=== PATIENT | male | born 1955 | race Two or more races ===

== ENCOUNTER 2020-08-17 08:08 | Outpatient (REF) | payer OTHER, SELFPAY ==
[2020-08-17 09:04] LABS: Estimated Average Glucose 137 mg/dL; Hemoglobin A1c % 6.4 %
[2020-08-17 09:05] LABS: Alanine Aminotransferase 34 U/L (0-40); Albumin Level 4.2 g/dL (3.5-5.0); Alkaline Phosphatase 99 U/L (39-117); Anion Gap 10 (12-20); Aspartate Amino Transferase 22 U/L (5-37); Bilirubin Total 0.4 mg/dL (0.0-1.0); Blood Urea Nitrogen 22 mg/dL (9-16); Calcium 8.8 mg/dL (8.4-10.2); Carbon Dioxide 27 mmol/L (22-29); Chloride 106 mmol/L (96-108); Estimated Glomerular Filt Rate > 60; Glucose Random 172 mg/dL (60-115); Potassium 4.4 mmol/L (3.3-5.1); Sodium 139 mmol/L (135-145); Total Protein 6.3 g/dL (6.5-8.0)
== END 2020-08-17 08:09 | disposition home or self-care (01) ==
LOC: HO.LAB 08:08
PROVIDERS: PCP Internal Medicine; Visit Provider Internal Medicine
DX: E03.9 Hypothyroidism, unspecified (principal); E11.40 Type 2 diabetes mellitus with diabetic neuropathy, unspecified; R61 Generalized hyperhidrosis; Q61.9 Cystic kidney disease, unspecified
CPT/HCPCS: 36415; 80053; 83036; 84443

== ENCOUNTER 2020-08-22 12:22 | Outpatient (REF) | payer OTHER, SELFPAY ==
--- NOTE | ~2020-08-22 | US_ITS ---
EXAMINATION: US RETROPERITONEAL LIMITED (RENAL ONLY) CLINICAL INFORMATION: Complex cyst of kidney. COMPARISON: Ultrasound renals 09/02/2018 and 08/25/2017 TECHNIQUE: Real-time imaging of the kidneys. FINDINGS: RIGHT KIDNEY: 13.6 x 7.6 x 8.1 cm (SAG x AP x TRV). Within the mid to lower pole, there is an enlarging 6.7 x 7.9 x 6.7 cm cyst with septation without vascular flow within the septation. Previously, this cyst measured approximately 6.9 x 4.2 x 5.9 if you include what was called a second cyst which on today's study may represent a portion of the larger septated cyst. Renal cortical thickness is normal. No renal calculi or hydronephrosis. LEFT KIDNEY: 12.5 x 5.6 x 6.5 cm (SAG x AP x TRV). The left kidney is atrophic. There is significant cortical thinning present. There is again noted to be hydronephrosis versus numerous parapelvic cysts. Numerous cortical cysts are present some with septations. Within the upper pole, the largest cyst measures 3.3 x 4.0 x 3.3 cm in size. Within the midpole, the largest cyst measures 6.3 x 4.8 x 5.7 cm in size and within the lower pole, the largest cyst measures 3.3 x 3.0 x 3.1 cm in size. US/US renal BI IMPRESSION: Bilateral renal cysts, some of which have septations and at least the right renal cyst increasing in size since prior studies. Atrophic left kidney with what appears to be hydronephrosis and, less likely, parapelvic cysts. No suspicious solid mass appreciated. No vascular flow within any of the septations.
== END 2020-08-22 12:23 | disposition home or self-care (01) ==
LOC: HO.US 12:22
PROVIDERS: PCP Internal Medicine; Visit Provider Internal Medicine
DX: N28.1 Cyst of kidney, acquired (principal)
CPT/HCPCS: 76775

== ENCOUNTER 2020-10-29 11:23 | Outpatient (REF) | payer OTHER, SELFPAY ==
--- NOTE | ~2020-10-29 | XR_ITS ---
EXAMINATION: XR SINUSES CLINICAL INFORMATION: Sinusitis COMPARISON: None TECHNIQUE: The sinuses are imaged in 5 views. FINDINGS: There are no air-fluid levels or focal mucosal thickening. No definite polypoid mass. There is no sinus expansion or bony wall thickening or sclerosis or destructive process. XR/XR sinus min 3V IMPRESSION: Unremarkable examination.
== END 2020-10-29 11:24 | disposition home or self-care (01) ==
LOC: HO.XRAY 11:23
PROVIDERS: PCP Internal Medicine; Visit Provider Otolaryngology
DX: J32.9 Chronic sinusitis, unspecified (principal)
CPT/HCPCS: 70220

== ENCOUNTER 2020-11-09 08:33 | Outpatient (REF) | payer OTHER, SELFPAY ==
[2020-11-09 09:49] LABS: Estimated Average Glucose 157 mg/dL; Hemoglobin A1c % 7.1 %
[2020-11-09 10:12] LABS: Alanine Aminotransferase 33 U/L (0-40); Albumin Level 4.4 g/dL (3.5-5.0); Alkaline Phosphatase 88 U/L (39-117); Anion Gap 13 (12-20); Aspartate Amino Transferase 20 U/L (5-37); Bilirubin Total 0.7 mg/dL (0.0-1.0); Blood Urea Nitrogen 20 mg/dL (9-16); Calcium 9.4 mg/dL (8.4-10.2); Carbon Dioxide 23 mmol/L (22-29); Chloride 110 mmol/L (96-108); Estimated Glomerular Filt Rate > 60; Glucose Random 113 mg/dL (60-115); Potassium 4.4 mmol/L (3.3-5.1); Sodium 142 mmol/L (135-145); Total Protein 6.3 g/dL (6.5-8.0)
== END 2020-11-09 08:34 | disposition home or self-care (01) ==
LOC: HO.LAB 08:33
PROVIDERS: PCP Internal Medicine; Visit Provider Internal Medicine
DX: E03.9 Hypothyroidism, unspecified (principal); E11.40 Type 2 diabetes mellitus with diabetic neuropathy, unspecified; N26.1 Atrophy of kidney (terminal); Q61.9 Cystic kidney disease, unspecified; R53.83 Other fatigue
CPT/HCPCS: 36415; 80053; 83036

== ENCOUNTER 2021-02-28 07:44 | Outpatient (REF) | payer OTHER, SELFPAY ==
[2021-02-28 09:02] LABS: MANUAL DIFF FLAG NO
[2021-02-28 09:05] LABS: Basophils Percent Auto 0.4 % (0-2); Eosinophils Absolute Auto 0.1 X10*3/uL (0.0-0.4); Eosinophils Percent Auto 1.9 % (0-4); Hematocrit 35.3 % (42-52); Imm Gran Abs Auto 0.06 X10*3/uL (0.00-0.03); Imm Gran Pct Auto 1.3 % (0.0-0.4); Lymphocytes Absolute Auto 1.3 X10*3/uL (1.2-4.9); Lymphocytes Percent Auto 27.9 % (20-40); Mean Corpuscular Hemoglobin 28.8 pg (27.0-33.0); Mean Corpuscular Volume 84.7 fL (80-98); Mean Platelet Volume 10.1 fL (9.4-12.4); Monocytes Absolute Auto 0.4 X10*3/uL (0.1-1.2); Monocytes Percent Auto 8.4 % (2-11); Neutrophils Absolute Auto 2.9 X10*3/uL (2.0-8.3); Neutrophils Percent Auto 60.1 % (45-73); Platelet Count 166 X10*3/uL (160-400); Red Blood Count 4.17 X10*6/uL (4.60-5.80); Red Cell Distribution Width 13.8 % (11.0-16.0); White Blood Count 4.8 X10*3/uL (4.8-10.8)
[2021-02-28 09:23] LABS: Estimated Average Glucose 134 mg/dL; Hemoglobin A1c % 6.3 %
[2021-02-28 09:42] LABS: Alanine Aminotransferase 32 U/L (0-40); Albumin Level 4.3 g/dL (3.5-5.0); Alkaline Phosphatase 95 U/L (39-117); Anion Gap 11 (12-20); Aspartate Amino Transferase 21 U/L (5-37); Bilirubin Total 0.4 mg/dL (0.0-1.0); Blood Urea Nitrogen 20 mg/dL (9-16); Calcium 9.2 mg/dL (8.4-10.2); Carbon Dioxide 23 mmol/L (22-29); Chloride 111 mmol/L (96-108); Cholesterol 129 mg/dL; Estimated Glomerular Filt Rate > 60; Glucose Random 141 mg/dL (60-115); HDL Cholesterol 31 mg/dL; LDL Cholesterol Calculated 75 mg/dl; Potassium 3.9 mmol/L (3.3-5.1); Sodium 141 mmol/L (135-145); Total Protein 6.2 g/dL (6.5-8.0); Triglycerides 116 mg/dL
[2021-02-28 09:45] LABS: Thyroid Stimulating Hormone 2.34 uIU/mL (0.32-4.0)
[2021-02-28 09:52] LABS: Creatinine Urine 67.98 mg/dL; Microalbum/Creatinine Ratio Ur 14.7 ug/mg cr
== END 2021-02-28 07:45 | disposition home or self-care (01) ==
LOC: HO.LAB 07:44
PROVIDERS: PCP Internal Medicine; Visit Provider Internal Medicine
DX: E03.9 Hypothyroidism, unspecified (principal); E11.9 Type 2 diabetes mellitus without complications; E78.00 Pure hypercholesterolemia, unspecified; R53.83 Other fatigue
CPT/HCPCS: 36415; 80053; 80061; 82043; 83036; 84443; 85025

== ENCOUNTER 2021-04-01 09:22 | Outpatient (REF) | payer OTHER, SELFPAY ==
--- NOTE | ~2021-04-01 | XR_ITS ---
EXAMINATION: XR HIP, RIGHT CLINICAL INFORMATION: Right hip pain. COMPARISON: Radiograph of the right hip dated from 10/06/2016. TECHNIQUE: Two views of the right hip. FINDINGS: No acute fractures or malalignment. The femoral head is well-seated in the acetabula. There are mild degenerative changes of the hip, unchanged since 2017. A subtle sclerotic focus in the lateral intertrochanteric region and subtle chondroid matrix within the medial intertrochanteric region are stable since 2017. XR/XR hip RT min 2V IMPRESSION: Mild degenerative arthritis of the right hip. Otherwise, unremarkable study.
== END 2021-04-01 09:23 | disposition home or self-care (01) ==
LOC: HO.XRAY 09:22
PROVIDERS: PCP Internal Medicine; Visit Provider Internal Medicine
DX: M25.551 Pain in right hip (principal)
CPT/HCPCS: 73502

== ENCOUNTER 2021-04-03 13:11 | Outpatient (REF) | payer OTHER, SELFPAY ==
--- NOTE | ~2021-04-03 | XR_ITS ---
EXAMINATION: XR CHEST CLINICAL INFORMATION: Hemoptysis. COMPARISON: No similar priors. TECHNIQUE: 2 views of the chest were obtained. FINDINGS: Normal appearance of the cardiomediastinal silhouette. Somewhat lucent opacities in the left lower lobe are indeterminate. No pleural effusions or pneumothorax. Compression deformity in the midthoracic spine of uncertain age. XR/XR chest 2V IMPRESSION: Suggestion of bubbly/lucent lesions in the left lower lobe which could be related with bronchiectasis although remain indeterminate. Recommend further evaluation with a diagnostic chest CT. Compression deformities in the mid to lower thoracic spine of uncertain age. Correlate clinically for tenderness at this site. The report will be called to the ordering clinician by a [place] [facility] Physician Artist Consultant.
== END 2021-04-03 13:12 | disposition home or self-care (01) ==
LOC: HO.XRAY 13:11
PROVIDERS: Visit Provider Internal Medicine
DX: R04.2 Hemoptysis (principal)
CPT/HCPCS: 71046

== ENCOUNTER 2021-09-24 09:12 | Outpatient (REF) | payer OTHER, SELFPAY ==
[2021-09-24 10:29] LABS: Estimated Average Glucose 229 mg/dL; Hemoglobin A1c % 9.6 %
[2021-09-24 10:55] LABS: Alanine Aminotransferase 50 U/L (0-40); Albumin Level 4.3 g/dL (3.5-5.0); Alkaline Phosphatase 118 U/L (39-117); Anion Gap 14 (12-20); Aspartate Amino Transferase 25 U/L (5-37); Bilirubin Total 0.5 mg/dL (0.0-1.0); Blood Urea Nitrogen 23 mg/dL (9-16); Calcium 9.5 mg/dL (8.4-10.2); Carbon Dioxide 22 mmol/L (22-29); Chloride 106 mmol/L (96-108); Estimated Glomerular Filt Rate > 60; Glucose Random 177 mg/dL (60-115); Potassium 4.7 mmol/L (3.3-5.1); Sodium 137 mmol/L (135-145); Total Protein 6.6 g/dL (6.5-8.0)
== END 2021-09-24 09:13 | disposition home or self-care (01) ==
LOC: HO.LAB 09:12
PROVIDERS: PCP Internal Medicine; Visit Provider Internal Medicine
DX: Z00.00 Encounter for general adult medical examination without abnormal findings (principal); E03.9 Hypothyroidism, unspecified; E11.9 Type 2 diabetes mellitus without complications; E78.00 Pure hypercholesterolemia, unspecified; R61 Generalized hyperhidrosis
CPT/HCPCS: 36415; 80053; 83036

== ENCOUNTER 2022-01-03 08:09 | Outpatient (REF) | payer OTHER, SELFPAY ==
[2022-01-03 09:21] LABS: Alanine Aminotransferase 32 U/L (0-40); Albumin Level 4.1 g/dL (3.5-5.0); Alkaline Phosphatase 85 U/L (39-117); Anion Gap 11 (12-20); Aspartate Amino Transferase 19 U/L (5-37); Bilirubin Total 0.4 mg/dL (0.0-1.0); Blood Urea Nitrogen 25 mg/dL (9-16); Calcium 8.4 mg/dL (8.4-10.2); Carbon Dioxide 22 mmol/L (22-29); Chloride 112 mmol/L (96-108); Estimated Glomerular Filt Rate > 60; Glucose Random 138 mg/dL (60-115); Potassium 3.9 mmol/L (3.3-5.1); Sodium 141 mmol/L (135-145); Total Protein 5.9 g/dL (6.5-8.0)
[2022-01-03 09:40] LABS: Estimated Average Glucose 126 mg/dL
[2022-01-03 09:45] LABS: Thyroid Stimulating Hormone 3.12 uIU/mL (0.32-4.0)
== END 2022-01-03 08:10 | disposition home or self-care (01) ==
LOC: HO.LAB 08:09
PROVIDERS: PCP Internal Medicine; Visit Provider Internal Medicine
DX: E03.9 Hypothyroidism, unspecified (principal); E11.65 Type 2 diabetes mellitus with hyperglycemia; J47.9 Bronchiectasis, uncomplicated; R63.5 Abnormal weight gain
CPT/HCPCS: 36415; 80053; 83036; 84443

== ENCOUNTER 2022-03-18 17:09 | Outpatient (REF) | payer OTHER, SELFPAY ==
--- NOTE | ~2022-03-18 | US_ITS ---
EXAMINATION: US VENOUS ULTRASOUND WITH DOPPLER LOWER EXTREMITY, BILATERAL CLINICAL INFORMATION: History of trauma with lower extremity pain COMPARISON: None TECHNIQUE: Ultrasound of the deep veins is performed from the hip to the calf with compression sonography and color and pulse Doppler assessment. Spectral analysis with color-flow imaging is performed. FINDINGS: RIGHT: There is normal venous compression and respiratory variation and augmented flow. The visualized common femoral vein, superficial femoral vein, profunda femoral vein, popliteal vein, and the trifurcation region shows no evidence of deep venous thrombosis. There is no significant popliteal fossa cyst. LEFT: There is normal venous compression and respiratory variation and augmented flow. The visualized common femoral vein, superficial femoral vein, profunda femoral vein, popliteal vein, and the trifurcation region shows no evidence of deep venous thrombosis. There is no significant popliteal fossa cyst. If the patient's symptoms persist, followup ultrasound in 5 days 7 days might be of value to exclude proximal propagation from a non-visualized calf vein. US/US venous duplex LE BI IMPRESSION: No DVT demonstrated in either lower extremity.
== END 2022-03-18 17:10 | disposition home or self-care (01) ==
LOC: HO.US 17:09
PROVIDERS: PCP Internal Medicine; Visit Provider Internal Medicine
DX: M79.605 Pain in left leg (principal); M79.604 Pain in right leg
CPT/HCPCS: 93970

== ENCOUNTER 2022-03-25 16:13 | Outpatient (REF) | payer OTHER, SELFPAY ==
--- NOTE | ~2022-03-25 | US_ITS ---
EXAMINATION: US VENOUS ULTRASOUND WITH DOPPLER LOWER EXTREMITY, LEFT CLINICAL INFORMATION: Left leg pain and swelling COMPARISON: Bilateral lower extremity duplex on 03/18/2020 TECHNIQUE: Ultrasound of the deep veins is performed from the hip to the calf with compression sonography and color and pulse Doppler assessment. Spectral analysis with color-flow imaging is performed. FINDINGS: There is normal venous compression and respiratory variation and augmented flow. The visualized common femoral vein, superficial femoral vein, profunda femoral vein, popliteal vein, and the trifurcation region shows no evidence of deep venous thrombosis. There is no significant popliteal fossa cyst. If the patient's symptoms persist, followup ultrasound in 5 days 7 days might be of value to exclude proximal propagation from a non-visualized calf vein. US/US venous duplex LE IMPRESSION: No DVT demonstrated in the left lower extremity.
== END 2022-03-25 16:14 | disposition home or self-care (01) ==
LOC: HO.US 16:13
PROVIDERS: PCP Internal Medicine; Visit Provider Internal Medicine
DX: R60.0 Localized edema (principal); M79.605 Pain in left leg
CPT/HCPCS: 93971

== ENCOUNTER 2022-04-04 07:44 | Outpatient (REF) | payer OTHER, SELFPAY ==
[2022-04-04 07:59] LABS: MANUAL DIFF FLAG NO
[2022-04-04 08:33] LABS: Basophils Percent Auto 0.4 % (0-2); Eosinophils Absolute Auto 0.2 X10*3/uL (0.0-0.4); Hematocrit 38.2 % (42.0-52.0); Hemoglobin 13.3 g/dl (14.0-18.0); Imm Gran Abs Auto 0.03 X10*3/uL (0.00-0.03); Imm Gran Pct Auto 0.6 % (0.0-0.4); Lymphocytes Absolute Auto 1.6 X10*3/uL (1.2-4.9); Lymphocytes Percent Auto 29.2 % (20-40); Mean Corpuscular HGB Conc 34.8 g/dl (31.0-36.0); Mean Corpuscular Volume 86.2 fL (80.0-98.0); Mean Platelet Volume 9.7 fL (9.4-12.4); Monocytes Absolute Auto 0.4 X10*3/uL (0.1-1.2); Neutrophils Absolute Auto 3.2 x10*3/uL (2.0-8.3); Neutrophils Percent Auto 58.8 % (45-73); Platelet Count 177 X10*3/uL (160-400); Red Blood Count 4.43 X10*6/uL (4.60-5.80); Red Cell Distribution Width 13.2 % (11.0-16.0); White Blood Count 5.4 X10*3/uL (4.8-10.8)
[2022-04-04 08:44] LABS: Estimated Average Glucose 120 mg/dL; Hemoglobin A1c % 5.8 %
[2022-04-04 08:49] LABS: Alanine Aminotransferase 28 U/L (0-40); Albumin Level 4.6 g/dL (3.5-5.0); Alkaline Phosphatase 77 U/L (39-117); Anion Gap 14 (12-20); Aspartate Amino Transferase 22 U/L (5-37); Bilirubin Total 0.3 mg/dL (0.0-1.0); Blood Urea Nitrogen 30 mg/dL (9-16); Calcium 9.6 mg/dL (8.4-10.2); Carbon Dioxide 25 mmol/L (22-29); Chloride 103 mmol/L (96-108); Cholesterol 115 mg/dL; Estimated Glomerular Filt Rate > 60; Glucose Random 110 mg/dL (60-115); HDL Cholesterol 35 mg/dL; LDL Cholesterol Calculated 65 mg/dl; Potassium 4.4 mmol/L (3.3-5.1); Sodium 138 mmol/L (135-145); Total Protein 6.6 g/dL (6.5-8.0); Triglycerides 78 mg/dL
[2022-04-04 09:10] LABS: Creatinine Urine 69.98 mg/dL; Microalbum/Creatinine Ratio Ur 7.1 ug/mg cr
[2022-04-04 09:11] LABS: Prostate Specific Antigen Scr 0.56 ng/mL (<0.05-4.0)
[2022-04-04 09:29] LABS: Vitamin B12 806 pg/mL (200-900)
== END 2022-04-04 07:45 | disposition home or self-care (01) ==
LOC: HO.LAB 07:44
PROVIDERS: PCP Internal Medicine; Visit Provider Internal Medicine
DX: Z12.5 Encounter for screening for malignant neoplasm of prostate (principal); E03.9 Hypothyroidism, unspecified; E11.40 Type 2 diabetes mellitus with diabetic neuropathy, unspecified; E11.65 Type 2 diabetes mellitus with hyperglycemia; E78.00 Pure hypercholesterolemia, unspecified; J47.9 Bronchiectasis, uncomplicated; N40.0 Benign prostatic hyperplasia without lower urinary tract symptoms
CPT/HCPCS: 36415; 80053; 80061; 82043; 82607; 83036; 84153; 85025

== ENCOUNTER 2023-02-09 09:23 | Outpatient (REF) | payer OTHER, SELFPAY ==
[2023-02-09 10:43] LABS: Estimated Average Glucose 143 mg/dL; Hemoglobin A1c % 6.6 %
[2023-02-09 11:18] LABS: Alanine Aminotransferase 27 U/L (0-40); Albumin Level 3.9 g/dL (3.5-5.0); Alkaline Phosphatase 103 U/L (39-117); Anion Gap 15 (12-20); Aspartate Amino Transferase 15 U/L (5-37); Bilirubin Total 0.4 mg/dL (0.0-1.0); Blood Urea Nitrogen 21 mg/dL (9-16); Calcium 9.4 mg/dL (8.4-10.2); Carbon Dioxide 22 mmol/L (22-29); Chloride 104 mmol/L (96-108); Estimated Glomerular Filt Rate > 60; Glucose Random 301 mg/dL (60-115); Potassium 4.8 mmol/L (3.3-5.1); Sodium 136 mmol/L (135-145); Total Protein 6.4 g/dL (6.5-8.0)
[2023-02-09 11:22] LABS: Thyroid Stimulating Hormone 1.05 uIU/mL (0.32-4.0)
== END 2023-02-09 09:24 | disposition home or self-care (01) ==
LOC: HO.10HDL 09:23
PROVIDERS: Visit Provider Internal Medicine
DX: Z00.00 Encounter for general adult medical examination without abnormal findings (principal); E03.8 Other specified hypothyroidism; E11.9 Type 2 diabetes mellitus without complications; E78.00 Pure hypercholesterolemia, unspecified
CPT/HCPCS: 36415; 80053; 83036; 84443

== ENCOUNTER 2023-04-03 09:14 | Outpatient (REF) | payer OTHER, SELFPAY ==
--- NOTE | 2023-04-03 09:17 | EMG_ITS ---
Chief complaint: History of stroke with right sided hemiparesis. No residual weakness seen on exam today. Still complains of right hand pain and numbness. Reason for referral: Evaluate for radiculopathy Referred by: Dr. Phelan Procedure done: Right upper extremity NCS/EMG Precautions and/or limitations: None The limb temperature was monitored continuously and remained between 32-36 degrees C during the performance of the NCS. Nerve Conduction Studies Anti Sensory Summary Table ?Stim Site NR Onset (ms) Norm Onset (ms) Peak (ms) Norm Peak (ms) O-P Amp (?V) Norm O-P Amp Site1 Site2 Delta-0 (ms) Dist (cm) Bart (m/s) Norm Bart (m/s) Right Median Anti Sensory (2nd Digit) Wrist ? 2.9 3.5 <3.6 24.5 >10 Wrist 2nd Digit 2.9 14.0 48 Right Radial Anti Sensory (Thumb) Forearm ? 2.5 2.8 <3.1 15.2 Forearm Thumb 2.5 0.0 Right Ulnar Anti Sensory (5th Digit) Wrist ? 2.5 3.3 <3.7 24.4 >15.0 Wrist 5th Digit 2.5 14.0 56 Motor Summary Table ?Stim Site NR Onset (ms) Norm Onset (ms) O-P Amp (mV) Norm O-P Amp iAmp (mV) Amp (1st) (%) Site1 Site2 Delta-0 (ms) Dist (cm) Bart (m/s) Norm Bart (m/s) Right Median Motor (Abd Poll Brev) Wrist ? 3.8 <3.9 8.5 >4.5 10.5 100.0 Elbow Wrist 3.3 19.0 58 >45 Elbow ? 7.1 8.3 10.3 97.6 Right Ulnar Motor (Abd Dig Minimi) Wrist ? 2.9 <3.0 7.3 >5 8.6 100.0 B Elbow Wrist 3.0 18.5 62 >45 B Elbow ? 5.9 8.2 9.9 112.3 A Elbow B Elbow 1.4 10.0 71 >45 A Elbow ? 7.3 7.3 9.1 100.0 EMG ?Side Muscle Nerve Root Ins Act Fibs Psw Amp Dur Poly Recrt Int Pat Comment Right 1stDorInt Ulnar C8-T1 Nml Nml Nml Nml Nml 0 Nml Complete Right FlexCarRad Median C6-7 Nml Nml Nml Nml Nml 0 Nml Complete Right Biceps Musculocut C5-6 Nml Nml Nml Nml Nml 0 Nml Complete Right Triceps Radial C6-7-8 Nml Nml Nml Nml Nml 0 Nml Complete Right Deltoid Axillary C5-6 Nml Nml Nml Nml Nml 0 Nml Complete FINDINGS: All motor and sensory nerves tested showed normal latencies, amplitudes and conduction velocities. Concentric needle EMG was performed in selected muscles of the right upper extremity. Study did not reveal signs of electric abnormalities as shown in the table below. IMPRESSION: 1. This is a normal study. 2. There is no electrodiagnostic evidence for median neuropathy, ulnar neuropathy, brachial plexopathy, or cervical radiculopathy. Thank you for your kind referral. Kayla Zaldivar MD, NAHUM Board Certified, [place] Board [employer] and Rehabilitation (ABPMR) Board Certified, [place] Board of Electrodiagnostic Medicine (ABEM) [place] [id number] [facility]
== END 2023-04-03 09:15 | disposition home or self-care (01) ==
LOC: HO.NEURO 09:14
PROVIDERS: PCP Internal Medicine; Visit Provider Internal Medicine
DX: G56.01 Carpal tunnel syndrome, right upper limb (principal)
CPT/HCPCS: 95886; 95909

== ENCOUNTER → 2023-04-03 09:17 | Outpatient (BNV) | payer OTHER, SELFPAY | PROVIDERS: PCP Internal Medicine; Visit Provider Physical Medicine & Rehabilitation | DX: M79.641 Pain in right hand (principal); R20.2 Paresthesia of skin | CPT/HCPCS: 95886; 95909 ==

== ENCOUNTER 2023-04-15 08:41 | Outpatient (REF) | payer OTHER, SELFPAY ==
[2023-04-15 11:17] LABS: Creatinine Urine 28.92 mg/dL; Microalbumin Urine < 5.0 mg/L
== END 2023-04-15 08:42 | disposition home or self-care (01) ==
LOC: HO.LAB 08:41
PROVIDERS: PCP Internal Medicine; Visit Provider Internal Medicine
DX: E11.9 Type 2 diabetes mellitus without complications (principal); E78.00 Pure hypercholesterolemia, unspecified; I10 Essential (primary) hypertension; Z86.73 Personal history of transient ischemic attack (TIA), and cerebral infarction without residual deficits; Z12.5 Encounter for screening for malignant neoplasm of prostate
CPT/HCPCS: 36415; 80053; 80061; 82043; 82570; 83036; 84153; 85025

== ENCOUNTER 2023-08-11 08:00 | Outpatient (REF) | payer OTHER, MEDICARE, SELFPAY ==
[2023-08-11 08:47] LABS: Estimated Average Glucose 120 mg/dL; Hemoglobin A1c % 5.8 % (<6.0)
[2023-08-11 09:15] LABS: Alanine Aminotransferase 21 U/L (0-40); Albumin Level 4.4 g/dL (3.5-5.0); Alkaline Phosphatase 70 U/L (39-117); Anion Gap 10 (12-20); Aspartate Amino Transferase 18 U/L (5-37); Bilirubin Total 0.5 mg/dL (0.0-1.0); Blood Urea Nitrogen 27 mg/dL (9-16); Calcium 9.3 mg/dL (8.4-10.2); Carbon Dioxide 25 mmol/L (22-29); Chloride 108 mmol/L (96-108); Estimated Glomerular Filt Rate > 60; Glucose Random 155 mg/dL (60-115); Potassium 4.4 mmol/L (3.3-5.1); Sodium 139 mmol/L (135-145); Total Protein 6.6 g/dL (6.5-8.0)
[2023-08-11 09:32] LABS: Thyroid Stimulating Hormone 1.94 uIU/mL (0.32-4.0)
== END 2023-08-11 08:01 | disposition home or self-care (01) ==
LOC: HO.LAB 08:00
PROVIDERS: PCP Internal Medicine; Visit Provider Internal Medicine
DX: E03.8 Other specified hypothyroidism (principal); E11.9 Type 2 diabetes mellitus without complications; I10 Essential (primary) hypertension; R61 Generalized hyperhidrosis
CPT/HCPCS: 36415; 80053; 83036; 84443

== ENCOUNTER 2024-05-12 07:48 | Outpatient (REF) | payer OTHER, MEDICARE, SELFPAY ==
[2024-05-12 08:12] LABS: MANUAL DIFF FLAG NO
[2024-05-12 08:51] LABS: Basophils Percent Auto 0.6 % (0-2); Eosinophils Absolute Auto 0.2 X10*3/uL (0.0-0.4); Eosinophils Percent Auto 3.1 % (0-4); Hemoglobin 12.6 g/dl (14.0-18.0); Imm Gran Abs Auto 0.06 X10*3/uL (0.00-0.03); Imm Gran Pct Auto 1.1 % (0.0-0.4); Lymphocytes Absolute Auto 1.1 X10*3/uL (1.2-4.9); Mean Corpuscular Hemoglobin 30.1 pg (27.0-33.0); Mean Corpuscular Volume 86.1 fL (80.0-98.0); Mean Platelet Volume 9.3 fL (9.4-12.4); Monocytes Absolute Auto 0.4 X10*3/uL (0.1-1.2); Neutrophils Absolute Auto 3.7 x10*3/uL (2.0-8.3); Neutrophils Percent Auto 68.2 % (45-73); Platelet Count 194 X10*3/uL (160-400); Red Blood Count 4.18 X10*6/uL (4.60-5.80); White Blood Count 5.4 X10*3/uL (4.8-10.8)
[2024-05-12 08:52] LABS: Estimated Average Glucose 128 mg/dL; Hemoglobin A1C 140.3747 umol/L; Hemoglobin A1c % 6.1 % (<6.0); Total Hemoglobin (HGBA1C) 3292.7452 umol/L
[2024-05-12 09:16] LABS: Alanine Aminotransferase 27 U/L (0-40); Albumin Level 4.2 g/dL (3.5-5.0); Alkaline Phosphatase 94 U/L (39-117); Anion Gap 12 (12-20); Aspartate Amino Transferase 21 U/L (5-37); Bilirubin Total 0.5 mg/dL (0.0-1.0); Blood Urea Nitrogen 23 mg/dL (9-16); Calcium 9.6 mg/dL (8.4-10.2); Carbon Dioxide 22 mmol/L (22-29); Chloride 108 mmol/L (96-108); Cholesterol 115 mg/dL (<200); Estimated Glomerular Filt Rate > 60; Glucose Random 197 mg/dL (60-115); HDL Cholesterol 31 mg/dL (>40); LDL Cholesterol Calculated 59 mg/dL (<100); Potassium 4.3 mmol/L (3.3-5.1); Sodium 138 mmol/L (135-145); Total Protein 6.4 g/dL (6.5-8.0); Triglycerides 125 mg/dL (<150)
[2024-05-12 09:34] LABS: Prostate Specific Antigen Scr 0.47 ng/mL (<0.05-4.0)
[2024-05-12 10:18] LABS: Creatinine Urine 62.02 mg/dL; Microalbum/Creatinine Ratio Ur 12.8 ug/mg cr (<30)
== END 2024-05-12 07:49 | disposition home or self-care (01) ==
LOC: HO.LAB 07:48
PROVIDERS: PCP Internal Medicine; Visit Provider Internal Medicine
DX: E03.8 Other specified hypothyroidism (principal); E11.9 Type 2 diabetes mellitus without complications; E78.00 Pure hypercholesterolemia, unspecified; I10 Essential (primary) hypertension; N40.0 Benign prostatic hyperplasia without lower urinary tract symptoms; Z12.5 Encounter for screening for malignant neoplasm of prostate
CPT/HCPCS: 36415; 80053; 80061; 82043; 82570; 83036; 84153; 85025

== ENCOUNTER 2024-06-17 07:59 | Outpatient (REF) | payer OTHER, MEDICARE, SELFPAY | END 2024-06-17 08:00 | disposition home or self-care (01) | LOC: HO.US 07:59 | PROVIDERS: PCP Internal Medicine; Visit Provider Internal Medicine | DX: N28.1 Cyst of kidney, acquired (principal) | CPT/HCPCS: 76775 ==

== ENCOUNTER 2024-08-29 08:16 | Outpatient (REF) | payer OTHER, MEDICARE, SELFPAY ==
[2024-08-29 08:54] LABS: Estimated Average Glucose 120 mg/dL; Hemoglobin A1C 130.7074 umol/L; Hemoglobin A1c % 5.8 % (<6.0); Total Hemoglobin (HGBA1C) 3268.4058 umol/L
[2024-08-29 09:40] LABS: Alanine Aminotransferase 20 U/L (0-40); Alkaline Phosphatase 80 U/L (39-117); Anion Gap 13 (12-20); Aspartate Amino Transferase 19 U/L (5-37); Bilirubin Total 0.4 mg/dL (0.0-1.0); Blood Urea Nitrogen 21 mg/dL (9-16); Calcium 8.9 mg/dL (8.4-10.2); Carbon Dioxide 22 mmol/L (22-29); Chloride 110 mmol/L (96-108); Estimated Glomerular Filt Rate > 60; Glucose Random 153 mg/dL (60-115); Sodium 141 mmol/L (135-145); Total Protein 6.2 g/dL (6.5-8.0)
== END 2024-08-29 08:17 | disposition home or self-care (01) ==
LOC: HO.LAB 08:16
PROVIDERS: PCP Internal Medicine; Visit Provider Internal Medicine
DX: E03.8 Other specified hypothyroidism (principal); E11.9 Type 2 diabetes mellitus without complications; E78.00 Pure hypercholesterolemia, unspecified; I10 Essential (primary) hypertension; M75.41 Impingement syndrome of right shoulder
CPT/HCPCS: 36415; 80053; 83036; 84443

== ENCOUNTER 2024-09-27 08:41 | Outpatient (AMB) | payer OTHER, MEDICARE, SELFPAY ==
--- NOTE | 2024-09-27 08:42 | A.OFFVIS_ITS ---
Intake Visit Reasons: Kidney Cysts Intake Note: New Patient presents for initial visit for kidney cysts Urology Medications: none Blood Thinner: none Director Of Hospitality Required: Yes Accompanied by: Unknown Allergies No Known Allergies [No Known Allergies*] Allergy (Unverified 09/27/24 09:32) Medication List - Last Reconciled 09/27/24 by VERONICA Ahn-JEANNE aspirin 81 mg PO DAILY atorvastatin 20 mg PO DAILY glipizide ER 10 mg PO DAILY levothyroxine 88 mcg PO DAILY losartan 50 mg PO DAILY sertraline 100 mg PO DAILY sitagliptin phos-metformin 50-1,000 mg (Janumet) 1 tab PO BID HPI Comments Details: Tommy is a 69-year-old Andorran-speaking male patient of Dr. Weinberg who was accompanied by his daughter at today's office visit. Has a past medical history of hypertension, diabetes, renal cysts, and erectile dysfunction. In discussion with the patient today he reports having previously followed up with Urology in the past Dr. Ortiz and undergoing surveillance monitoring of renal cysts however lost follow-up and is here to re-establish care. He discusses having followed up with Urology back home in [facility] where he is from and having had a previous prostate procedure. In review of patient's chart it appears renal ultrasound was recently ordered and performed. These results were communicated and reviewed with the patient and his daughter today. 06/28 bilateral kidneys with no hydronephrosis or renal calculi. Bilateral renal cysts are varying in complex cyst 80, largest 10.5 cm on the right kidney which continues to increase in size when compared to previous MRI imaging in 2017. We discussed obtaining CT renal mass protocol for further assessment evaluation. He otherwise denies any bothersome urinary issues. He denies urinary urgency, urinary frequency, incontinence, nocturia, hematuria, dysuria, foul smelling urine, changes to urinary stream, flank pain, fever, and or chills. He is happy with his current voiding parameters. He however discusses his ongoing issues with erectile dysfunction. He reports having trialed daily dosing of tadalafil 10 mg daily and did not find this helpful as well as Viagra on demand. He reports having trialed injection therapy with Urology and [place] in reports this was helpful however was not understanding this needed to be done prior to sexual activity. We discussed at length potential causes of renal cysts as well as ED and further treatment options and risks and benefits of these treatment options. He otherwise offers no other issues or concerns at this time. In review of patient's chart PSAs are as follows: 03/27 0.6, 04/27 1.1, 05/29 0.5 Plan I have decided to order a CT scan to reassess the patient's renal cysts and determine any significant changes since the 2017 MRI. This will inform future management or intervention needs for the renal cysts. As for the erectile dysfunction, after unsuccessful attempts with current oral medication, the patient was presented with a potential regimen adjustment or transition to injection therapy. The potential for self-administered injection therapy was discussed, addressing its pros and cons. Labratory results will be reviewed upon follow-up to guide further management decisions. Patient was informed and verbally consented to the use of an ambient scribe for clinic note documentation during this visit. Discussion Notes I thoroughly discussed with the patient the findings of the recent ultrasound, emphasizingof his renal cysts but noting the need for updated imaging via CT scan to evaluate any meaningful changes in the right cyst's size. Benefits of continuing routine surveillance imaging were explained, ensuring prompt detection of any adverse developments. Regarding erectile dysfunction, I outli randell the current recommendations with potential regimen changes. The patient was informed about alternative erectile dysfunction treatments, including injection therapy, with clear instructions on self-administration and its practicality if oral medications remain ineffective. I covered the risks and benefits, with a focus on tailored treatment based on his response. Consent for the CT scan and discussions regarding injection therapy were obtained. [facility] Medical History (Updated 09/27/24 @ 09:49 by NADIYA Ahn) Hypertension Diabetes Review of Systems Const All systems reviewed & are unremarkable except as noted in HPI and below Physical Exam Const General: cooperative, healthy appearing, comfortable, no acute distress, well developed, alert and awake Orientation/consciousness: patient oriented x3 Limitations: language barrier HEENT Head: Yes normal to inspection, Yes normocephalic and Yes atraumatic Ears: hearing grossly normal bilaterally Eyes General: appearance normal, both eyes and all related structures Neck Neck: Yes normal visual inspection and Yes trachea midline Chest Chest palpation & inspection: normal inspection of the chest Resp Effort & Inspection: normal respiratory effort and able to speak in complete sentences Cardio Rate: regular rate GI Inspection: Yes normal to inspection General: Yes no CVA tenderness Back/Spine/Pelvis Back: no CVA tenderness Skin General skin exam: no rashes or lesions noted Neuro General: patient oriented x3 Extrem General: Yes normal to inspection Psych Appearance: grossly normal and well kempt Mental Status: mental status grossly normal Speech and movement: Normal speech and movement present and Clear speech present Affect: normal affect Attitude: cooperative Thought process: Normal thought process present Thought content: Normal thought content present Insight: Fair insight present (Psych) Judgement: Fair judgement present (Psych) Results AMB Urinalysis, Automated UA Leukoctes 0 Rachelle/uL Last Edit by [employer] on 09/27/24 09:04 UA Nitrite Last Edit by [employer] on 09/27/24 09:04 UA Urobilinogen 0.2 mg/dL Last Edit by [employer] on 09/27/24 09:04 UA Protein 15 mg/dL Last Edit by [employer] on 09/27/24 09:04 UA pH 6.0 Last Edit by [employer] on 09/27/24 09:04 UA Blood 0 Jayme/uL Last Edit by [employer] on 09/27/24 09:04 UA Specific [place] 1.015 Last Edit by [employer] on 09/27/24 09:04 UA Ketone Last Edit by [employer] on 09/27/24 09:04 UA Bilirubin 0 mg/dL Last Edit by [employer] on 09/27/24 09:04 UA Glucose 0 mg/dL Last Edit by [employer] on 09/27/24 09:04 Results Reviewed Results Reviewed: Laboratory Last Values Urine pH (Auto) 6.0 09/27/24 09:03 Specific [place] (Auto) 1.015 09/27/24 09:03 Urine Protein (Auto) 15 mg/dL 09/27/24 09:03 Glucose (UA)(Auto) 0 mg/dL 09/27/24 09:03 Urine Blood (Auto) 0 Jayme/uL 09/27/24 09:03 Urine Bilirubin (Auto) 0 mg/dL 09/27/24 09:03 Urine Urobilinogen (Auto) 0.2 mg/dL 09/27/24 09:03 Leukocyte Esterase (Auto) 0 Rachelle/uL 09/27/24 09:03 Date of Service: 06/17/24 Procedure(s): US renal BI FINDINGS: RIGHT KIDNEY: 15.1 x 9.0 x 7.6 cm (SAG x AP x TRV). No hydronephrosis. No renal calculi. Renal cortical thickness is normal. Limited visualization. 10.5 x 6.6 x 7.3 cm lateral midpole right renal cyst appears mildly complex with septations and low-level internal echoes, measuring 6.7 x 7.9 x 6.7 cm on 08/22/2020 ultrasound and 6.7 x 4.2 cm on MRI abdomen of 02/02/2017, increasing in size over time. LEFT KIDNEY: 12.5 x 6.3 x 7.6 cm (SAG x AP x TRV). No hydronephrosis. No renal calculi. Limited visualization. Diffuse renal cortical thinning. Multiple left renal cysts, some with septations, and some are difficult to fully characterize as visualization is limited due to bowel gas. Largest cyst 6.2 x 5.1 x 6.0 cm midpole, previously 6.3 x 4.8 x 5.7 cm. IMPRESSION: 1. No hydronephrosis. No renal calculi. 2. Bilateral renal cysts of varying complexity, largest 10.5 cm right kidney continues to increase in size. Dedicated CT scan employing renal mass protocol with images obtained both prior to and following intravenous contrast recommended. Assessment & Plan Assessment & Plan (1) Complex renal cyst: Code(s): N28.1 - Cyst of kidney, acquired Category: Medical (2) Erectile dysfunction associated with type 2 diabetes mellitus: Code(s): E11.69 - Type 2 diabetes mellitus with other specified complication; N52.1 - Erectile dysfunction due to diseases classified elsewhere Category: Medical Plan In office urinalysis results reviewed the patient today; as noted above. Recent renal imaging results reviewed with the patient today; as noted above. We discussed obtaining CT renal mass protocol for further assessment evaluation. BUN and creatinine ordered for imaging. We discussed potential causes of renal cysts as well as ED and further treatment options and risks and benefits of these treatment options. We discussed at length the importance of managing diabetes for improvement in ED as well as overall health and well-being. Patient currently denies any bothersome urinary issues. He reports be happy with current voiding parameters. Follow-up in 1-3 months with imaging to be completed prior; or sooner with any issues, concerns, and or questions. Orders: Orders CT abdomen pelvis wo/w IV con Today N28.1 - Cyst of kidney, acquired Blood Urea Nitrogen Today R39.15 - Urgency of urination AMB Urinalysis Automated Today Z13.9 - Encounter for screening, unspecified Creatinine Today R39.15 - Urgency of urination Patient Instructions: The patient had an opportunity to ask questions regarding the treatment plan. All questions were answered. Physical exam, labs, and imaging were discussed and reviewed in detail. As well as risks, benefits, and discussion of treatment choices. No major barriers to understanding were identified. The patient expressed understanding and agreement with the above treatment plan. The patient was made aware they should contact our office by phone for worsening of their current condition, the appearance of new symptoms, or with any questions or concerns. Compliance is encouraged with any medications and follow up testing that is ordered. It is a privilege to be allowed the opportunity to participate in? your urological care.? Again, if you have any questions or concerns If you have any questions or concerns please do not hesitate to contact me. The office is [phone]. This note is constructed using voice recognition software. While every effort has been made to ensure accuracy staff consultant errors may have been included. Yours sincerely, NADIYA Ahn Coding Level of Care Code New Pt Level 4 (39651) Diagnoses Complex renal cyst N28.1 Erectile dysfunction associated with type 2 diabetes mellitus E11.69; N52.1 Time Spent (min) 35
== END 2024-09-27 09:35 | disposition home or self-care (01) ==
LOC: HO.HUSH 08:42
PROVIDERS: PCP Internal Medicine; Visit Provider Nurse Practitioner Family
DX: N28.1 Cyst of kidney, acquired (principal); E11.69 Type 2 diabetes mellitus with other specified complication; N52.1 Erectile dysfunction due to diseases classified elsewhere; Z13.9 Encounter for screening, unspecified
CPT/HCPCS: 99204

== ENCOUNTER → 2024-09-27 08:41 | Outpatient (BNVA) | payer OTHER, MEDICARE, SELFPAY | PROVIDERS: PCP Internal Medicine; Visit Provider Nurse Practitioner Family | DX: N28.1 Cyst of kidney, acquired (principal); E11.69 Type 2 diabetes mellitus with other specified complication; N52.1 Erectile dysfunction due to diseases classified elsewhere; R39.15 Urgency of urination | CPT/HCPCS: 81003 ==

== ENCOUNTER 2024-12-09 08:26 | Outpatient (REF) | payer OTHER, MEDICARE, SELFPAY ==
[2024-12-09 09:15] LABS: Estimated Average Glucose 128 mg/dL; Hemoglobin A1c % 6.1 % (<6.0)
[2024-12-09 10:16] LABS: Alanine Aminotransferase 22 U/L (0-40); Albumin Level 4.3 g/dL (3.5-5.0); Alkaline Phosphatase 73 U/L (39-117); Anion Gap 10 (12-20); Aspartate Amino Transferase 20 U/L (5-37); Bilirubin Total 0.5 mg/dL (0.0-1.0); Blood Urea Nitrogen 18 mg/dL (9-16); Calcium 9.6 mg/dL (8.4-10.2); Carbon Dioxide 25 mmol/L (22-29); Chloride 109 mmol/L (96-108); Estimated Glomerular Filt Rate > 60; Glucose Random 153 mg/dL (60-115); Potassium 4.2 mmol/L (3.3-5.1); Sodium 140 mmol/L (135-145); Total Protein 6.6 g/dL (6.5-8.0)
== END 2024-12-09 08:27 | disposition home or self-care (01) ==
LOC: HO.LAB 08:26
PROVIDERS: PCP Internal Medicine; Visit Provider Internal Medicine
DX: E03.8 Other specified hypothyroidism (principal); E11.9 Type 2 diabetes mellitus without complications; E78.00 Pure hypercholesterolemia, unspecified; N28.1 Cyst of kidney, acquired
CPT/HCPCS: 36415; 80053; 83036

== ENCOUNTER 2024-12-27 07:04 | Outpatient (REF) | payer OTHER, MEDICARE, SELFPAY ==
[2024-12-27 08:27] LABS: Blood Urea Nitrogen 23 mg/dL (9-16); Estimated Glomerular Filt Rate > 60
== END 2024-12-27 07:05 | disposition home or self-care (01) ==
LOC: HO.LAB 07:04
PROVIDERS: PCP Internal Medicine; Visit Provider Nurse Practitioner Family
DX: R39.15 Urgency of urination (principal)
CPT/HCPCS: 36415; 82565; 84520

== ENCOUNTER 2025-02-02 07:15 | Outpatient (REF) | payer OTHER, MEDICARE, SELFPAY ==
[2025-02-02 08:26] LABS: Blood Urea Nitrogen 26 mg/dL (9-16); Estimated Glomerular Filt Rate > 60
== END 2025-02-02 07:16 | disposition home or self-care (01) ==
LOC: HO.LAB 07:15
PROVIDERS: PCP Internal Medicine; Visit Provider Nurse Practitioner Family
DX: N28.1 Cyst of kidney, acquired (principal); E11.69 Type 2 diabetes mellitus with other specified complication; N52.1 Erectile dysfunction due to diseases classified elsewhere
CPT/HCPCS: 36415; 82565; 84520

== ENCOUNTER 2025-02-24 07:28 | Outpatient (REF) | payer OTHER, MEDICARE, SELFPAY ==
--- NOTE | ~2025-02-24 | CT_ITS ---
CLINICAL HISTORY: N28.1 - Cyst of kidney, acquired --- Additional Notes or Special Instructions: CT renal mass protocol Exam: 1. CT of the abdomen without intravenous contrast. 2. CT of the abdomen and pelvis with intravenous contrast. Comparison: None provided. Findings: CT abdomen: Lung bases are clear. No acute bony lesions. [id number] scattered degenerative change throughout the visualized portions of the thoracolumbar spine. Simple bilateral renal cysts are identified. On the right, the largest cyst measures 10.4 x 7.6 cm] in size. There is a 5 mm calculus within the interpolar region of the right kidney without hydronephrosis or perinephric stranding. Cyst within the left kidney measure up to 6.8 x 7.5 cm in size. There is marked atrophy of the left kidney with a central complete replacement of the left renal parenchyma by cystic change. Low-attenuation throughout the liver is indicative of fatty infiltration. No focal hepatic lesion. Main portal vein is patent. Spleen, pancreas, gallbladder, and adrenal glands are unremarkable. No dilated small bowel. No free fluid or free air. CT pelvis: Appendix is normal. Colon is decompressed. Scattered diverticuli seen within the sigmoid colon without findings of diverticulitis. No free fluid or free air. Patient has undergone prior trans urethral resection or incision of the prostate gland Impression: 1. Bilateral renal cysts without suspicious characteristics. There is marked atrophy of the left kidney with near-complete loss of the left renal parenchyma replaced by cystic change. No acute findings. 2. Fatty liver. 3. Decompressed colon with scattered diverticuli. Given the decompressed nature of the colon, evaluation of colonic wall thickening is limited. Correlation with the patient's colon cancer screening is suggested This document has been electronically signed by: Tejas Flannery MD on 02/25/2025 11:57:17
[2025-02-24] MEDS: iohexoL 350 MG/ML 100 ML INFUS..BTL IV (08:52)
== END 2025-02-24 07:29 | disposition home or self-care (01) ==
LOC: HO.CT 07:28
PROVIDERS: PCP Internal Medicine; Visit Provider Nurse Practitioner Family
DX: N28.1 Cyst of kidney, acquired (principal)
CPT/HCPCS: 74178; Q9967

== ENCOUNTER → 2025-02-24 07:30 | Outpatient (BNV) | payer OTHER, MEDICARE, SELFPAY | PROVIDERS: PCP Internal Medicine; Visit Provider Radiology Diagnostic Radiology | DX: N28.1 Cyst of kidney, acquired (principal) | CPT/HCPCS: 74178 ==

== ENCOUNTER 2025-03-22 07:56 | Outpatient (AMB) | payer OTHER, MEDICARE, SELFPAY ==
--- NOTE | 2025-03-22 08:08 | A.OFFVIS_ITS ---
Intake Visit Reasons: 3m/CT/Labs Intake Note: Patient is present for 3M/CT/LABS Urology Medication:NONE Antibiotic Allergy:NONE Blood Thinner:NONE Guidance Secretary Required: No Guidance Secretary Services: Guidance Secretary Present Guidance Secretary Name: Bhargavi [id number] Allergies No Known Allergies (No Known Allergies*) Allergy (Verified 03/22/25 08:42) Medication List - Last Reconciled 03/22/25 by VERONICA Ahn- aspirin 81 mg PO DAILY atorvastatin 20 mg PO DAILY glipizide ER 10 mg PO DAILY levothyroxine 88 mcg PO DAILY losartan 50 mg PO DAILY sertraline 100 mg PO DAILY sitagliptin phos-metformin 50-1,000 mg (Janumet) 1 tab PO BID HPI Comments Details: Tommy is a 69-year-old Scottish-speaking male patient of Dr. Weinberg. Has a past medical history of hypertension, diabetes, renal cysts, and erectile dysfunction. He presents to the office today for follow-up of his renal cysts and erectile dysfunction. Of note, patient was seen approximately six months ago as a new patient at which time a CT renal mass protocol in labs were ordered for further assessment evaluation. These results were reviewed and communicated with the patient today. 02/27 bilateral renal cyst without suspicious characteristics. No acute findings. Patient has undergone prior transurethral resection of incision of the prostate gland per radiology report. In discussion with the patient today he reports having previously followed up with Urology in the past Dr. Ortiz and undergoing surveillance monitoring of renal cysts. He discusses having followed up with Urology back home in [facility] where he is from and having had a previous prostate procedure. He denies any bothersome urinary issues. He denies urinary urgency, urinary frequency, incontinence, nocturia, hematuria, dysuria, foul smelling urine, changes to urinary stream, flank pain, fever, and or chills. He is happy with his current voiding parameters. He however discusses his ongoing issues with erectile dysfunction. He discusses despite PRN tadalafil prior to sexual activity he continues to experience erections that are not adequate for penetration. We did discussed at length potential causes of ED as well as further treatment options and risks and benefits of these treatment options. He otherwise offers no other issues or concerns at this time. Labs are as follows: PSA: 03/27 0.6, 10/23 1.1, 05/29 0.5 BUN: 04/27 24, 08/29 27, 05/29 23, 08/30 21, 12/28 18, 12/28 23, 01/27 26 Creatinine: 04/27 0.84, 08/29 0.94, 05/29 0.83, 08/30 0.74, 12/28 0.88, 12/28 0.71, 01/27 0.87 [facility] Medical History Hypertension Diabetes Review of Systems Const All systems reviewed & are unremarkable except as noted in HPI and below Physical Exam Const General: cooperative, healthy appearing, comfortable, no acute distress, well developed, alert and awake Orientation/consciousness: patient oriented x3 Limitations: language barrier HEENT Head: Yes normal to inspection, Yes normocephalic and Yes atraumatic Ears: hearing grossly normal bilaterally Eyes General: appearance normal, both eyes and all related structures Neck Neck: Yes normal visual inspection and Yes trachea midline Chest Chest palpation & inspection: normal inspection of the chest Resp Effort & Inspection: normal respiratory effort and able to speak in complete sentences Cardio Rate: regular rate GI Inspection: Yes normal to inspection General: Yes no CVA tenderness Back/Spine/Pelvis Back: no CVA tenderness Skin General skin exam: no rashes or lesions noted Neuro General: patient oriented x3 Extrem General: Yes normal to inspection Psych Appearance: grossly normal and well kempt Mental Status: mental status grossly normal Speech and movement: Normal speech and movement present and Clear speech present Affect: normal affect Attitude: cooperative Thought process: Normal thought process present Thought content: Normal thought content present Insight: Fair insight present (Psych) Judgement: Fair judgement present (Psych) Results AMB Urinalysis, Automated UA Leukoctes 0 Rachelle/uL Last Edit by GURWINDER Monroy on 03/22/25 08:19 UA Nitrite Negative Last Edit by GURWINDER Monroy on 03/22/25 08:19 UA Urobilinogen 0.2 mg/dL Last Edit by GURWINDER Monroy on 03/22/25 08:1 9 UA Protein 0 mg/dL Last Edit by GURWINDER Monroy on 03/22/25 08:19 UA pH 6.0 Last Edit by GURWINDER Monroy on 03/22/25 08:19 UA Blood 0 Jayme/uL Last Edit by GURWINDER Monroy on 03/22/25 08:19 UA Specific [place] 1.015 Last Edit by GURWINDER Monroy on 03/22/25 08: 19 UA Ketone Negative Last Edit by GURWINDER Mnoroy on 03/22/25 08:19 UA Bilirubin 0 mg/dL Last Edit by GURWINDER Monroy on 03/22/25 08:19 UA Glucose 0 mg/dL Last Edit by Selvin San [facility] on 03/22/25 08:19 Results Reviewed Results Reviewed: Laboratory Last Values Urine pH (Auto) 6.0 03/22/25 08:18 Specific [place] (Auto) 1.015 03/22/25 08:18 Urine Protein (Auto) 0 mg/dL 03/22/25 08:18 Glucose (UA)(Auto) 0 mg/dL 03/22/25 08:18 Urine Ketones (Auto) Negative 03/22/25 08:18 Urine Blood (Auto) 0 Jayme/uL 03/22/25 08:18 Urine Nitrite (Auto) Negative 03/22/25 08:18 Urine Bilirubin (Auto) 0 mg/dL 03/22/25 08:18 Urine Urobilinogen (Auto) 0.2 mg/dL 03/22/25 08:18 Leukocyte Esterase (Auto) 0 Rachelle/uL 03/22/25 08:18 Date of Service: 02/24/25 Findings: CT abdomen: Lung bases are clear. No acute bony lesions. [id number] scattered degenerative change throughout the visualized portions of the thoracolumbar spine. Simple bilateral renal cysts are identified. On the right, the largest cyst measures 10.4 x 7.6 cm] in size. There is a 5 mm calculus within the interpolar region of the right kidney without hydronephrosis or perinephric stranding. Cyst within the left kidney measure up to 6.8 x 7.5 cm in size. There is marked atrophy of the left kidney with a central complete replacement of the left renal parenchyma by cystic change. Low-attenuation throughout the liver is indicative of fatty infiltration. No focal hepatic lesion. Main portal vein is patent. Spleen, pancreas, gallbladder, and adrenal glands are unremarkable. No dilated small bowel. No free fluid or free air. CT pelvis: Appendix is normal. Colon is decompressed. Scattered diverticuli seen within the sigmoid colon without findings of diverticulitis. No free fluid or free air. Patient has undergone prior trans urethral resection or incision of the prostate gland Impression: 1. Bilateral renal cysts without suspicious characteristics. There is marked atrophy of the left kidney with near-complete loss of the left renal parenchyma replaced by cystic change. No acute findings. 2. Fatty liver. 3. Decompressed colon with scattered diverticuli. Given the decompressed nature of the colon, evaluation of colonic wall thickening is limited. Correlation with the patient's colon cancer screening is suggested Assessment & Plan Assessment & Plan (1) Complex renal cyst: Code(s): N28.1 - Cyst of kidney, acquired Category: Medical (2) Erectile dysfunction associated with type 2 diabetes mellitus: Code(s): E11.69 - Type 2 diabetes mellitus with other specified complication; N52.1 - Erectile dysfunction due to diseases classified elsewhere Category: Medical Plan In office urinalysis results reviewed the patient today; as noted above. Recent renal imaging results reviewed with the patient today; as noted above. Labs were reviewed with the patient today; as noted above We discussed potential causes of renal cysts as well as ED and further treatment options and risks and benefits of these treatment options. We discussed at length the importance of managing diabetes for improvement in ED as well as overall health and well-being. Patient currently denies any bothersome urinary issues. He reports be happy with current voiding parameters. Prescription provided for p.r.n. Viagra Follow-up in 3 months with imaging to be completed prior; or sooner with any issues, concerns, and or questions. Orders: Orders Prostate Specific Antigen Today E11.69 - Type 2 diabetes mellitus with other specified complication, N52.1 - Erectile dysfunction due to diseases classified elsewhere Testosterone, Free/Total Today E11.69 - Type 2 diabetes mellitus with other specified complication, N52.1 - Erectile dysfunction due to diseases classified elsewhere AMB Urinalysis Automated Today Z13.9 - Encounter for screening, unspecified Hemoglobin A1c Today E11.9 - Type 2 diabetes mellitus without complications Medications: New sildenafil (Viagra) [id number] [facility] GroupGDRX Member [id number] 100 mg PO DAILY 10 tabs 3RF 30 days Patient Instructions: The patient had an opportunity to ask questions regarding the treatment plan. All questions were answered. Physical exam, labs, and imaging were discussed and reviewed in detail. As well as risks, benefits, and discussion of treatment choices. No major barriers to understanding were identified. The patient expressed understanding and agreement with the above treatment plan. The patient was made aware they should contact our office by phone for worsening of their current condition, the appearance of new symptoms, or with any questions or concerns. Compliance is encouraged with any medications and follow up testing that is ordered. It is a privilege to be allowed the opportunity to participate in? your urological care.? Again, if you have any questions or concerns If you have any questions or concerns please do not hesitate to contact me. The office is [phone]. This note is constructed using voice recognition software. While every effort has been made to ensure accuracy hvac technician residential errors may have been included. Yours sincerely, NADIYA Ahn Coding Level of Care Code Est Pt Level 4 (69752) Complex EM visit Add On G2211 Diagnoses Complex renal cyst N28.1 Erectile dysfunction associated with type 2 diabetes mellitus E11.69; N52.1
== END 2025-03-22 09:00 | disposition home or self-care (01) ==
LOC: HO.HUSH 07:57
PROVIDERS: PCP Internal Medicine; Visit Provider Nurse Practitioner Family
DX: N28.1 Cyst of kidney, acquired (principal); E11.69 Type 2 diabetes mellitus with other specified complication; N52.1 Erectile dysfunction due to diseases classified elsewhere; Z13.9 Encounter for screening, unspecified
CPT/HCPCS: 99214; G2211

== ENCOUNTER → 2025-03-22 07:56 | Outpatient (BNVA) | payer OTHER, MEDICARE, SELFPAY | PROVIDERS: PCP Internal Medicine; Visit Provider Nurse Practitioner Family | DX: N28.1 Cyst of kidney, acquired (principal); E11.69 Type 2 diabetes mellitus with other specified complication; N52.1 Erectile dysfunction due to diseases classified elsewhere | CPT/HCPCS: 81003 ==

== ENCOUNTER 2025-06-06 08:43 | Outpatient (REF) | payer OTHER, MEDICARE, SELFPAY ==
[2025-06-06 10:22] LABS: Prostate Specific Antigen 0.41 ng/mL (<0.05-4.0)
[2025-06-12 16:02] LABS: Testosterone, Free 42.4 pg/mL (35.0-155.0)
== END 2025-06-06 08:44 | disposition home or self-care (01) ==
LOC: HO.LAB 08:43
PROVIDERS: Visit Provider Nurse Practitioner Family
DX: E11.69 Type 2 diabetes mellitus with other specified complication (principal); N52.1 Erectile dysfunction due to diseases classified elsewhere; Z12.5 Encounter for screening for malignant neoplasm of prostate
CPT/HCPCS: 36415; 83036; 84153; 84402; 84403

== ENCOUNTER 2025-06-22 08:45 | Outpatient (AMB) | payer OTHER, MEDICARE, SELFPAY ==
--- NOTE | 2025-06-22 08:54 | A.OFFVIS_ITS ---
Intake Visit Reasons: 3m/labs/UA Intake Note: Patient is present for 3M/LABS/UA A1C:6.7 PSA:0.41 TT:190 Urology Medication:SILDENAFIL Antibiotic Allergy: Blood Thinner: Neon Technician Required: Yes Neon Technician Services: Neon Technician Present Neon Technician Name: Alex [id number] Allergies No Known Allergies (No Known Allergies*) Allergy (Verified 06/22/25 09:17) Medication List - Last Reconciled 06/22/25 by KANNAN AhnP- aspirin 81 mg PO DAILY atorvastatin 20 mg PO DAILY glipizide ER 10 mg PO DAILY levothyroxine 88 mcg PO DAILY losartan 50 mg PO DAILY sertraline 100 mg PO DAILY sildenafil (Viagra) 100 mg PO DAILY 30 days sitagliptin phos-metformin 50-1,000 mg (Janumet) 1 tab PO BID HPI Comments Details: Tommy is a 69-year-old Korean-speaking male patient of Dr. Weinberg. Has a past medical history of hypertension, diabetes, renal cysts, and erectile dysfunction. He presents to the office today for follow-up of his renal cysts and erectile dysfunction. In discussion with the patient today he reports since his last office visit here he has trialed PRN dosing of Viagra however felt this made him dizzy and fatigued. We did discussed potential causes of ED as well as further treatment options and risks and benefits of these treatment options. Recent lab results reviewed with the patient today as noted and trended below: A1c: 06/29 6.7% Testosterone: 06/29 190 Free testosterone: 06/29 42.4 PSA: 03/27 0.6, 04/27 1.1, 05/29 0.5, 06/29 0.4 BUN: 04/27 24, 08/29 27, 05/29 23, 08/30 21, 12/28 18, 12/28 23, 01/27 26 Creatinine: 04/27 0.84, 08/29 0.94, 05/29 0.83, 08/30 0.74, 12/28 0.88, 12/28 0.71, 01/27 0.87 We did discussed hypogonadism. We did discuss hypogonadism in relation to erect ile dysfunction. We did discussed obtaining more labs for further assessment evaluation. We did review further treatment options of hypogonadism and risks and benefits of these treatment options. He also reports noting over the last 1-3 days he has been experiencing bladder pressure and a burning like sensation to his lower abdominal area. In office urinalysis results reviewed with the patient today negative leukocytes negative nitrates negative microscopic hematuria. 3+ glucosuria. PH 6.0. We did discuss potential causes of this lower urinary tract symptoms he is experiencing. We discussed further workup in risks and benefits of these interventions. Patient with a history of a renal cyst. Previous workup has included a CT renal mass protocol 02/27 that noted bilateral renal cyst without suspicious characteristics. No acute findings. Patient has undergone prior transurethral resection of incision of the prostate gland per radiology report. Patient reports a previous prostate procedure with Dr. Ortiz in the past. He denies any bothersome urinary issues. He denies urinary urgency, urinary frequency, incontinence, nocturia, hematuria, dysuria, foul smelling urine, changes to urinary stream, flank pain, fever, and or chills. We did discussed at length potential causes of ED as well as further treatment options and risks and benefits of these treatment options. He has previously trialed tadalafil at different dosage in and did not find this helpful. He otherwise offers no other issues or concerns at this time. [facility] Medical History Hypertension Diabetes Review of Systems Const All systems reviewed & are unremarkable except as noted in HPI and below Physical Exam Const General: cooperative, healthy appearing, comfortable, no acute distress, well developed, alert and awake Orientation/consciousness: patient oriented x3 Limitations: language barrier HEENT Head: Yes normal to inspection, Yes normocephalic and Yes atraumatic Ears: hearing grossly normal bilaterally Eyes General: appearance normal, both eyes and all related structures Neck Neck: Yes normal visual inspection and Yes trachea midline Chest Chest palpation & inspection: normal inspection of the chest Resp Effort & Inspection: normal respiratory effort and able to speak in complete sentences Cardio Rate: regular rate GI Inspection: Yes normal to inspection General: Yes no CVA tenderness Back/Spine/Pelvis Back: no CVA tenderness Skin General skin exam: no rashes or lesions noted Neuro General: patient oriented x3 Extrem General: Yes normal to inspection Psych Appearance: grossly normal and well kempt Mental Status: mental status grossly normal Speech and movement: Normal speech and movement present and Clear speech present Affect: normal affect Attitude: cooperative Thought process: Normal thought process present Thought content: Normal thought content present Insight: Fair insight present (Psych) Judgement: Fair judgement present (Psych) Results AMB Urinalysis, Automated UA Leukoctes 0 Rachelle/uL Last Edit by GURWINDER Monroy on 06/22/25 09:04 UA Nitrite Negative Last Edit by Selvin San [facility] on 06/22/25 09:04 UA Urobilinogen 0.2 mg/dL Last Edit by Selvin San [facility] on 06/22/25 09:0 4 UA Protein 0 mg/dL Last Edit by Selvin San [facility] on 06/22/25 09:04 UA pH 6.0 Last Edit by Selvin San [facility] on 06/22/25 09:04 UA Blood 0 Jayme/uL Last Edit by Selvin San [facility] on 06/22/25 09:04 UA Specific [place] 1.010 Last Edit by Selvin San [facility] on 06/22/25 09: 04 UA Ketone Negative Last Edit by Selvin San [facility] on 06/22/25 09:04 UA Bilirubin 0 mg/dL Last Edit by Selvin San [facility] on 06/22/25 09:04 UA Glucose 1000 mg/dL Last Edit by Selvin San [facility] on 06/22/25 09:04 Results Reviewed Results Reviewed: Laboratory Last Values Urine pH (Auto) 6.0 06/22/25 08:58 Specific [place] (Auto) 1.010 06/22/25 08:58 Urine Protein (Auto) 0 mg/dL 06/22/25 08:58 Glucose (UA)(Auto) 1000 mg/dL 06/22/25 08:58 Urine Ketones (Auto) Negative 06/22/25 08:58 Urine Blood (Auto) 0 Jayme/uL 06/22/25 08:58 Urine Nitrite (Auto) Negative 06/22/25 08:58 Urine Bilirubin (Auto) 0 mg/dL 06/22/25 08:58 Urine Urobilinogen (Auto) 0.2 mg/dL 06/22/25 08:58 Leukocyte Esterase (Auto) 0 Rachelle/uL 06/22/25 08:58 Assessment & Plan Assessment & Plan (1) Erectile dysfunction associated with type 2 diabetes mellitus: Code(s): E11.69 - Type 2 diabetes mellitus with other specified complication; N52.1 - Erectile dysfunction due to diseases classified elsewhere Category: Medical (2) Hypogonadism in male: Code(s): E29.1 - Testicular hypofunction Category: Medical (3) Sensation of pressure in bladder area: Code(s): R39.89 - Other symptoms and signs involving the genitourinary system Category: Medical Plan In office urinalysis results with the patient today; as noted above. Recent labs reviewed with the patient today as noted and trended above. We did discussed at length hypogonadism erectile dysfunction, and lower abdominal pressure he has been experiencing; we did discussed further treatment options of these conditions and risks and benefits of these treatment options. All questions were answered. We did discussed importance of maintaining good diabetic control for overall health and well-being. Will obtain redraw of testosterone, free testosterone, prolactin, LH, estradiol, and FSH for further assessment evaluation. Follow-up in 1-3 months with labs; or sooner with any issues, concerns, and or questions. Orders: Orders Estrad Free (Tot Ultra + Free) Today E29.1 - Testicular hypofunction Testosterone, Free/Total Today E29.1 - Testicular hypofunction AMB Urinalysis Automated Today Z13.9 - Encounter for screening, unspecified Follicle Stimulating Hormone Today E29.1 - Testicular hypofunction Prolactin Today E29.1 - Testicular hypofunction Lutenizing Hormone Today E29.1 - Testicular hypofunction Sex Hormone Binding Globulin Today E29.1 - Testicular hypofunction Medications: Discontinued sildenafil (Viagra) [id number] [facility] GroupGDRX Member [id number] Discontinued Reason: Doctor's Order 100 mg PO DAILY 30 days 10 tabs 3RF Patient Instructions: The patient had an opportunity to ask questions regarding the treatment plan. All questions were answered. Physical exam, labs, and imaging were discussed and reviewed in detail. As well as risks, benefits, and discussion of treatment choices. No major barriers to understanding were identified. The patient expressed understanding and agreement with the above treatment plan. The patient was made aware they should contact our office by phone for worsening of their current condition, the appearance of new symptoms, or with any questions or concerns. Compliance is encouraged with any medications and follow up testing that is ordered. It is a privilege to be allowed the opportunity to participate in? your urological care.? Again, if you have any questions or concerns If you have any questions or concerns please do not hesitate to contact me. The office is [phone]. This note is constructed using voice recognition software. While every effort has been made to ensure accuracy machine stonecutter errors may have been included. Yours sincerely, NADIYA Ahn Coding Level of Care Code Est Pt Level 4 (81689) Diagnoses Erectile dysfunction associated with type 2 diabetes mellitus E11.69; N52.1 Hypogonadism in male E29.1 Sensation of pressure in bladder area R39.89 Time Spent (min) 40
== END 2025-06-22 09:38 | disposition home or self-care (01) ==
LOC: HO.HUSH 08:46
PROVIDERS: PCP Internal Medicine; Visit Provider Nurse Practitioner Family
DX: E11.69 Type 2 diabetes mellitus with other specified complication (principal); N52.1 Erectile dysfunction due to diseases classified elsewhere; E29.1 Testicular hypofunction; R39.89 Other symptoms and signs involving the genitourinary system; Z13.9 Encounter for screening, unspecified
CPT/HCPCS: 99214

== ENCOUNTER → 2025-06-22 08:45 | Outpatient (BNVA) | payer OTHER, MEDICARE, SELFPAY | PROVIDERS: PCP Internal Medicine; Visit Provider Nurse Practitioner Family | DX: E11.69 Type 2 diabetes mellitus with other specified complication (principal); N52.1 Erectile dysfunction due to diseases classified elsewhere; E29.1 Testicular hypofunction; R39.89 Other symptoms and signs involving the genitourinary system; Z13.89 Encounter for screening for other disorder | CPT/HCPCS: 81003 ==

== ENCOUNTER 2025-07-04 08:04 | Outpatient (REF) | payer OTHER, MEDICARE, SELFPAY ==
[2025-07-04 09:30] LABS: Hemoglobin A1C 149.5288 umol/L
[2025-07-04 10:03] LABS: Alanine Aminotransferase 26 U/L (0-40); Albumin Level 4.2 g/dL (3.5-5.0); Alkaline Phosphatase 84 U/L (39-117); Anion Gap 11 (12-20); Aspartate Amino Transferase 23 U/L (5-37); Blood Urea Nitrogen 26 mg/dL (9-16); Calcium 8.6 mg/dL (8.4-10.2); Carbon Dioxide 27 mmol/L (22-29); Chloride 106 mmol/L (96-108); Cholesterol 133 mg/dL (<200); Estimated Glomerular Filt Rate > 60; HDL Cholesterol 31 mg/dL (>40); Potassium 4.2 mmol/L (3.3-5.1); Sodium 140 mmol/L (135-145); Total Protein 6.2 g/dL (6.5-8.0); Triglycerides 111 mg/dL (<150)
== END 2025-07-04 08:05 ==
LOC: HO.LAB 08:04
PROVIDERS: PCP Internal Medicine; Visit Provider Internal Medicine
DX: E11.9 Type 2 diabetes mellitus without complications (principal); E03.8 Other specified hypothyroidism; F32.9 Major depressive disorder, single episode, unspecified; I10 Essential (primary) hypertension; N40.0 Benign prostatic hyperplasia without lower urinary tract symptoms; Z12.5 Encounter for screening for malignant neoplasm of prostate
CPT/HCPCS: 36415; 80053; 80061; 82043; 82570; 83036; 84153